=== PATIENT | male | born 1970 | race Caucasian/White ===

== ENCOUNTER 2019-02-05 07:36 | Outpatient (RCR) | payer OTHER, SELFPAY ==
[2019-01-25 08:01] VITALS: BMI 27.5
--- NOTE | 2019-02-05 08:40 | HP.PTEVAL_ITS ---
Patient's Visit Information CAYLA DIAZ is a 49 year old M referred to Physical Therapy by Elizabeth Baca DO with a diagnosis of L LE weakness. Date of Evaluation: 02/05/19 Physical Therapist: Rich Ambrose, DPT, OCS, CSCS - Visit Plan Frequency: Every Other Week Duration: 2 Months Plan: Every other week x 2 months to progress L ankle strength, Leg stretches and LB ROM. Next session give quad stretch, LE rot in NWB and DKC and progress calf strength to blue band or heel raises b. Then yoga flow and progressions. - Subjective Findings: 2010 surgery discectomy L45. Had injections prior and at some point in that process got numbness L foot and calf atrophy since that time. Has sciatic pain slightly in R and had LBP a couple weeks ago but gone. Dr. baca is sending to neurologist due to L leg numbness and calf. pt worrying about overcompensating with R leg. No pain this week except R buttock sciatic for a little time after getting up and then gone within an hour. Works 3rd shift at [employer] on feet all night in [place]. Walks 5 miles per night. Works 7 days per week. Sleep is OK most of the time 6 hours. Not much free time, used to golf but no time. Basics at home are fine. - Pain R sciatica Pain Intensity (Out of 10): 0 Pain Intensity Range: 0, 2 - Objective L calf atrophied and not using in his gait pattern with premature L toe off due to weakness in calf and overusing hip flexor muscles. But I with gait. Transfers I. L/S aROM ext max limitation, flexion max limitations, SB mod limitations. HS max tight at -50 90/90 test. quads mod tight. ITB mod tight. Hip flexor mod tight with 5 degrees hip extension. Corrdiantion L reciprocal heel tap slight deficit vs R. reflexes 2/3 B patella and 1/3 L patella and 2/3 R patella. Sensation diminished in L foot and lateral calf. Weakness present L calf at 3/5, inv/ev at 4- adn DF 4+, R is 4+ throughout. Knee and hip strength is 4+/5 B without myotomal abnormalities. - Goals Goal 1:: patient able to heel raise on L calf Goal Time Frame: 6-8 Weeks Goal 2:: Patient I in appropriate home stretches, back ROM and L ankle strength to minimize future problems. Goal 3:: Patient feel condition 50% improving and no pain in sciatic area on R Goal Time Frame: 4-6 Weeks - Rehabilitation Potential Physical Therapy Diagnosis: L LE weakness form previous back problems Rehabilitation Potential: Fair - Anticipated Interventions Patient/Client Instruction: Educate patient on: Condition, Plan of Care For the Purpose of:: To increase ROM, To improve muscle performance and motor function, To improve ability of physical actions for home/community/work/leisure Therapeutic Exercise to Include: Strength training, Flexibilty training, Passive ROM, Active ROM For the Purpose of:: To decrease pain, To improve muscle performance and motor function, To improve ability of physical actions for home/community/work/leisure Thank you for the opportunity to evaluate your patient. For Medicare and Medicare HMO plans, please review the plan of care and approve it. It will need to be FAXED BACK to us at [phone] for Medicare purposes. For Medicare only, by signing this I certify the plan of care. Please let me know if there are questions or concerns regarding this plan of care. Physician Signature: Date:
--- NOTE | 2019-03-25 15:32 | HP.PT.NRP ---
HP - Discharge Summary (1) - Patient Information CAYLA DIAZ was seen in my office for initial evaluation on 02/05/19. The following Plan of Care was established for this patient: Initial Frequency: Every Other Week Initial Duration: 2 Months - Anticipated Interventions Patient/Client Instruction: Educate patient on: Condition, Plan of Care For the Purpose of:: To increase ROM, To improve muscle performance and motor function, To improve ability of physical actions for home/community/work/leisure Therapeutic Exercise to Include: Strength training, Flexibilty training, Passive ROM, Active ROM For the Purpose of:: To decrease pain, To improve muscle performance and motor function, To improve ability of physical actions for home/community/work/leisure This patient was last seen in our office 02/05/19. Pertinent comments regarding their Physical therapy will appear below: Pt seen for evaluation adn establish POC. He neglected to attend any further visits. At this point, it has been over 6 weeks adn I will discontinue due to nonattendance. At this point I will be discontinuing this patient from physical therapy. I would be happy to see this patient again in the future if found appropriate by the physician. Thank you! Rich Ambrose, DPT, OCS, CSCS
== END 2019-02-05 19:00 | disposition home or self-care (01) ==
LOC: PT 07:36
PROVIDERS: Family Provider Internal Medicine; PCP Internal Medicine; Referring Provider Internal Medicine; Visit Provider Internal Medicine
DX: R29.898 Other symptoms and signs involving the musculoskeletal system (principal)
CPT/HCPCS: 97110; 97162

== ENCOUNTER → 2019-05-12 08:14 | Outpatient (CLI) | payer OTHER, SELFPAY ==
[2019-01-25 08:01] VITALS: BMI 27.5
--- NOTE | 2019-05-12 08:36 | RAD_ITS ---
STUDY: X-RAY - LUMBOSACRAL SPINE REASON FOR EXAM: Male, 49 years old. TECHNIQUE: 7 view(s) of the lumbosacral spine were obtained. COMPARISON: None FINDINGS: The vertebral bodies are of normal height and alignment. The intervertebral discs are maintained except for mild narrowing at the level of L4-5 and L5-S1. There is no evidence of spondylolysis or spondylolisthesis. The spinous and transverse processes as well as the pedicles are intact. The flexion and extension views are unremarkable. RAD/L/S Spine Comp/w Bending Views IMPRESSION: Mild narrowing at the L4-5 and L5-S1 with mild apophyseal arthropathy. The study is otherwise negative. Electronically Signed: Gurjit Mark, at 9:44 EST Tel , Service support ,
[2019-05-12 09:36] LABS: Erythrocyte Sedimentation Rate 4 mm/hr (0-15)
[2019-05-12 09:48] LABS: Hemoglobin A1c 5.5 % (4.2-6.3)
[2019-05-12 10:13] LABS: Rheumatoid Factor < 10.0 IU/mL (<15)
[2019-05-12 11:23] LABS: HIV - WCH Non-Reactive (Nonreactive); Hepatitis C Antibody Non-Reactive (Nonreactive); Vitamin B12 462 pg/mL (211-911)
[2019-05-14 14:08] LABS: RNP Ab 0.3 AI (0.0-0.9); Smith Ab <0.2 AI (0.0-0.9)
[2019-05-15 13:19] LABS: ANTINUCLEAR ANTIBODIES DIRECT Negative (Negative)
[2019-05-17 20:07] LABS: PROEL- A/G Ratio 1.4 (0.7-1.7); PROEL- Albumin 3.9 g/dL (2.9-4.4); PROEL- Alpha-1 Globulin 0.2 g/dL (0.0-0.4); PROEL- Alpha-2 Globulin 0.6 g/dL (0.4-1.0); PROEL- Beta Globulin 0.9 g/dL (0.7-1.3); PROEL- Globulin, Total 2.7 g/dL (2.2-3.9); PROEL- TOTAL PROTEIN 6.6 g/dL (6.0-8.5)
[2019-05-17 21:20] LABS: ARSENIC (TOTAL), URINE 11 ug/L (0-50); Creatinine, Urine 1.33 g/L (0.30-3.00); Mercury, Urine 4 ug/L (0-19); Mercury:Creatinine Urine 3 ug/g creat (0-5)
== END ==
PROVIDERS: Family Provider Internal Medicine; PCP Internal Medicine; Referring Provider Psychiatry & Neurology Neurology; Visit Provider Psychiatry & Neurology Neurology
DX: M54.16 Radiculopathy, lumbar region (principal); G57.02 Lesion of sciatic nerve, left lower limb; G62.9 Polyneuropathy, unspecified; R53.83 Other fatigue; R73.9 Hyperglycemia, unspecified
CPT/HCPCS: 72114; 82175; 82570; 82607; 82746; 83036; 83655; 83825; 84165; 84443; 85652; 86038; 86235; 86431; 86703; 86803

== ENCOUNTER 2023-01-29 07:13 | Emergency (ER) | payer OTHER, SELFPAY ==
[2023-01-29 07:14] VITALS: BP 130/89; PULSE 97; RESP 14; TEMP 36.6; O2SAT 98; BMI 26.5
--- NOTE | 2023-01-29 07:17 | EDS_ITS ---
HPI History of Present Illness Chief Complaint: Abd Pain [facility] Medical History (Updated 01/29/23 @ 08:[address] Curtis Walker, ) Abnormal EKG Abnormal PFTs (pulmonary function tests) Back pain Benign essential hypertension Bradycardia Celiac disease COPD (chronic obstructive pulmonary disease) Dyspnea on exertion Elevated glucose HTN (hypertension) Impaired fasting glucose Leukocytosis Limb weakness Nicotine dependence in remission Persistent cough Schamberg disease Vitamin B12 deficiency Vitamin D insufficiency Home Medications amlodipine 5 mg tablet (Norvasc) 5 mg PO QDAY 08/07/17 [History Last Taken Unknown] hydrochlorothiazide 25 mg tablet 25 mg PO QAM 08/07/17 [History Last Taken Unknown] nebivolol 10 mg tablet (Bystolic) 10 mg PO QDAY 08/07/17 [History Last Taken Unknown] albuterol sulfate 90 mcg/actuation aerosol inhaler (ProAir HFA) 2 puff inhalation Q4H PRN shortness of breath or wheezing #1 device 02/03/20 [Rx Last Taken Unknown] doxepin 10 mg capsule 10 mg PO QHS PRN 02/03/20 [History Last Taken Unknown] ciprofloxacin HCl 500 mg tablet 500 mg PO BID #14 TABLETS 01/29/23 [Rx Last Taken Unknown] metronidazole 500 mg tablet 500 mg PO BID #14 tabs 01/29/23 [Rx Last Taken Unknown] ondansetron 4 mg disintegrating tablet 4 mg PO Q8H PRN nausea and vomiting 7 days #21 tabs 01/29/23 [Rx Last Taken Unknown] Allergy/AdvReac Type Severity Reaction Status Date / Time No Known Allergies Allergy Verified 01/29/23 07:14 Family History Son Asthma Mother Asthma Surgical History History of back surgery History of vasectomy Social History (Updated 02/03/20 @ 07:[address] Yariel Lamb, ) Smoking Status: Current every day smoker tobacco type: cigarettes how long ago did patient quit smokin, 2pk/day second hand exposure: Yes alcohol intake: never substance use type: does not use caffeine: Yes what type of physical activity do you participate in: none EXAM Physical Exam Const Vital Signs: 01/29/23 07:14 Temperature 97.8 F Temperature Source Temporal Pulse Rate 97 Respiratory Rate 14 Blood Pressure 130/89 H Blood Pressure Mean 102 Pulse Ox 98 Oxygen Delivery Method [place] [facility] [place] Medical decision making narrative: HISTORY OF PRESENT ILLNESS: 53-year-old male here with abdominal pain nausea, diarrhea. Patient states his was sick recently. He notes lower abdominal discomfort. He also notes some blood in his diarrhea. Denies frequency urgency or discomfort with urination. States he has had no abdominal surgeries. No vomiting but noted nausea this morning. No chest pain or shortness of breath. Last bowel was just prior to arrival. REVIEW OF SYSTEMS: Pertinent positives: Abdominal pain nausea, diarrhea Pertinent negatives: Vomiting PHYSICAL EXAM: Nursing triage notes reviewed, Vital signs reviewed Constitutional: please see [facility] HENT: MMM Eyes: Pupils equal round and reactive to light, Extraocular muscles intact Neck: No stridor, no JVD, full neck ROM Lungs: Clear to auscultation, No wheezing or rales. No increased work of breathing, no conversational dyspnea, no accessory muscle use, no nasal flaring. No respiratory distress noted Heart: Regular rate and rhythm, No murmurs, No rubs and No gallops, 2+ distal pulses (radial, femoral, posterior tibial) in all extremities Abdomen: Soft, there is no tenderness, rigidity, rebound or guarding, no obvious peritoneal signs, no palpable pulsatile abdominal masses, no auscultated abdominal bruit : No CVAT Extremities: No edema Neuro: No focal neurological deficits, cranial nerves II through XII intact, 5/5 strength in all extremities. Intact sensation to light touch in all extremities, 2+ reflexes bilateral patella tendons. Normal gait. No ataxia. Skin: No rash or lesions noted MEDICAL DECISION MAKING: Chief Complaint: Abdominal pain, nausea vomiting External records reviewed: No recent advanced imaging of the abdomen/pelvis Factors affecting care: History of COPD, Social determinants of health: current everyday smoker History obtained from others: The patient's Consults: none ALL IMAGES (IF OBTAINED) HAVE BEEN PERSONALLY REVIEWED AND INTERPRETED BY MYSELF. [facility] Narrative: Patient is hemodynamically stable, afebrile, nontoxic-appearing. Abdominal exam was benign but did have some mild tenderness in lower abdomen. I considered the following differential diagnosis: Infectious diarrhea, viral diarrhea, dehydration, electrolyte abnormality, diverticulitis, perforated ulcer I obtained a broad lab and imaging work-up to further elucidate the etiology the patient complaints. CT scan abdomen pelvis showed evidence of pancolitis, bl adder wall thickening. Labs are concerning for systemic inflammation, hypokalemia JOSHUA. There is no signs of endorgan hypoperfusion with a normal anion gap. Patient was given 2 L of fluid given oral potassium. BMP was repeated with improvement in creatinine as well as improvement in potassium. I had a shared decision-making discussion with the patient in regards to admission for further fluid hydration, repeat lab work and evaluation however patient refused admission at this time stating he like to try to take oral antibiotics to treat his UTI and pancolitis and to return if symptoms change or worsen. He was discharged with Zofran, ciprofloxacin and metronidazole for empiric colitis therapy. Ciprofloxacin was chosen to also cover UTI. Urine culture and stool cultures were sent. He was encouraged to follow-up with his primary care physician for further outpatient evaluation. The patient and/or family, caregivers express understanding. The patient and/or family, caregivers agrees with the plan. Shared decision making: I will have a discussion with the patient and or visitors regarding risk/benefits of further testing or admission. They will be made aware of of the risk/benefits inherent in this decision they will be given the opportunity to voice understanding. Total critical care time today provided was at least 0 minutes. This excludes separately billable procedures. Critical care time (if documented) is secondary to the patient having high probability of clinically significant/life threatening deterioration in the patient's condition which required my urgent intervention. Discharge Plan Triage Chief Complaint: Abd Pain ED Provider: Curtis Walker Dx/Rx/DC Orders Clinical Impression: Acute kidney injury, Acute dehydration, Diarrhea, Leukocytosis, Acute hypokalemia Instructions: Urinary Tract Infections in Men, ED Understanding Colitis Prescriptions: New metronidazole 500 mg tablet 500 mg PO BID Qty: 14 0RF ciprofloxacin HCl 500 mg tablet 500 mg PO BID Qty: 14 0RF ondansetron 4 mg tablet,disintegrating 4 mg PO Q8H PRN (Reason: nausea and vomiting) 7 Days Qty: 21 0RF No Action amlodipine [Norvasc] 5 mg tablet 5 mg PO QDAY hydrochlorothiazide 25 mg tablet 25 mg PO QAM nebivolol [Bystolic] 10 mg tablet 10 mg PO QDAY doxepin 10 mg capsule 10 mg PO QHS PRN albuterol sulfate [ProAir HFA] 90 mcg/actuation HFA aerosol inhaler 2 puff INHALATION Q4H PRN (Reason: shortness of breath or wheezing) Qty: 1 3RF Primary Care Provider: Elizabeth Heller Referrals: Elizabeth Heller DO [Primary Care Provider] - Activity Restrictions/Additional Instructions: Thank you for trusting us with your care today! Please take Tylenol (2 pills, 650 mg), ibuprofen (2 pills, 400 mg) every 6 hours as needed for pain and fever control. Please take Zofran as needed for nausea. Please take antibiotics as prescribed. Please return to the emergency department if your symptoms change or worsen. Specifically if you develop worsening pain, develop fever, develop vomiting, if you lose consciousness. Please follow with your primary care physician for further outpatient evaluation and management. Please inquire about stool and urine culture results and any need to adjust antimicrobial therapy. Disposition Disposition: Home, Self Care
--- NOTE | 2023-01-29 07:39 | CT_ITS ---
STUDY: CT ABDOMEN AND PELVIS WITH CONTRAST REASON FOR EXAM: Male, 53 years old. Lower abdominal pain. Nausea and vomiting. Diarrhea. RADIATION DOSAGE (If Supplied By Facility): CTDIvol = ( 14.69 ) mGy, DLP = ( 1079.42 ) mGycm TECHNIQUE: Transaxial images were obtained from the dome of the diaphragm to the symphysis pubis without oral contrast. IV 100mL Isovue-300 was administered. Sagittal and coronal images were reconstructed. Individualized dose optimization techniques were used for this CT. COMPARISON: None. FINDINGS: The visualized lung bases are unremarkable. The visualized portions of the heart are within normal limits. Normal liver. Normal gallbladder and extrahepatic biliary system. Normal spleen. Normal pancreas. Normal bilateral adrenal glands. Normal right kidney. Normal left kidney. Normal visualized stomach. Normal small intestine. Inflammatory changes seen in the colon worse in the right hemicolon. Colitis should be ruled out. Lymph nodes are seen in the mesenteric fat in the right lower quadrant suggestive of mesenteric adenitis. The appendix is visualized and appears normal. There is scattered atherosclerotic calcification of the abdominal aorta, without a demonstrated aneurysm. Normal inferior vena cava. Normal retroperitoneum. Bladder wall thickening although the bladder is not completely distended at this time. Normal abdominal wall. Normal osseous structures. CT/Abdomen/Pelvis W IV Cont ONLY IMPRESSION: Findings included with the pancolitis worse in the right hemicolon. Bladder wall thickening although the bladder is not completely distended at this time. Electronically Signed: Pacheco Rooney MD at 8:42 EDT ,
[2023-01-29 07:46] LABS: Absolute Lymphocyte Count 1.58 X10^3/uL (0.83-4.51); Absolute Neutrophil Count 9.3 X10^3/uL (2.0-7.7); Basophil% 0.8 % (0-1); Eosinophil# 0.09 X10^3/uL; Eosinophils% 0.7 % (0-5); Hematocrit 54.6 % (40-54); Lymphocyte # 1.58 X10^3/ul (0.83-4.51); Lymphocyte % 12.4 % (19-41); Mean Corp Hgb Conc 34.8 g/dL (32-36); Mean Corpuscular Hgb 32.3 pg (27.0-32.0); Mean Corpuscular Volume 92.9 fL (80-94); Mean Platelet Vol. 11.2 fl (6.2-12.0); Monocyte% 12.6 % (0-10); NRBC Flagged by Analyzer 0 % (0-5); Neutrophil # 9.33 X10^3/uL (2.7-7.7); Neutrophil % 73.2 % (47-70); POSITIVE DIFFERENTIAL YES; Platelet Count 254 K/mm3 (150-450); RBC Distribution Width CV 11.7 % (11.6-14.6); RBC Distribution Width SD 40.4 fl (35.1-43.9); Red Blood Count 5.88 M/mm3 (4.6-6.2); White Blood Count 12.7 K/mm3 (4.4-11.0)
[2023-01-29 07:53] LABS: Differential Indicated SCAN CRITERIA MET
[2023-01-29 07:54] LABS: Squamous Epithelial Cells - UA 0 SEEN /hpf (0-5)
[2023-01-29] MEDS: Ondansetron 4 MG/2 ML Vial IV (07:54)
[2023-01-29] MEDS: Morphine 4 MG/ML Syringe IV (07:54)
[2023-01-29] MEDS: 0.9% Normal Saline 1,000 ML 1000 ML IV (07:54)
[2023-01-29 08:03] LABS: Color, Urine Yellow (Yellow); Glucose, Dipstick Normal (Normal); Ketone-Dipstick 15 mg/dl (Negative); Leukocyte Esterase-Dipstick 25 /ul (Negative); Nitrite-Dipstick Positive (Negative); Occult Blood-Urine 25 /ul (Negative); Protein-Dipstick 100 mg/dl (Negative); Urine Clarity Sl. Cloudy (Clear); Urine Urobilinogen 4 mg/dl (Normal)
[2023-01-29 08:03] LABS: ALB/GLOB Ratio 0.9 RATIO (0.9-2.4); AST(SGOT) 14 U/L (15-37); Alanine Aminotransfer ALT/SGPT 25 U/L (16-61); Albumin, Serum 3.5 g/dL (3.2-5.0); Alkaline Phosphatase 68 U/L (45-117); Anion Gap 6 (5-15); BUN 23 mg/dL (7-18); Calcium,Total 9.1 mg/dL (8.5-10.1); Chloride 105 mmol/L (98-107); Creatinine, Serum 1.64 mg/dL (0.70-1.30); EST Glomerular Filtration Rate 47 mL/min (>60); Est Glom Filt Rate - Afr Amer 57 mL/min (>60); Estimated Creatinine Clearance 68.89 ml/min; Globulin 4.1 g/dL (2.2-4.2); Glucose 148 mg/dL (74-106); Lipase 37 U/L (13-75); Potassium 2.8 mmol/L (3.5-5.1); Protein, Total 7.6 g/dL (6.4-8.2); Sodium Level 137 mmol/L (136-145)
[2023-01-29 08:04] LABS: Urine Bilirubin Dipstick 1 mg/dL (Negative)
[2023-01-29 08:06] LABS: Bacteria 2+ /hpf (None Seen); Mucous, Urine 1+ /hpf (<or=2+); Red Blood Cells-Urine 0-5 SEEN /hpf (0-5); White Blood Cells 0-5 SEEN /hpf (0-5)
[2023-01-29 08:07] LABS: Coarse Granular Cast 5-10 SEEN /lpf (0-5 /lpf)
[2023-01-29 08:19] LABS: Differential Comment SCANNED
[2023-01-29] MEDS: Potassium Chloride Oral Tablet 20 MEQ 60 MEQ PO (08:36)
[2023-01-29] MEDS: 0.9% Normal Saline 1,000 ML 999 ML IV (08:36)
[2023-01-29 09:13] VITALS: RESP 18
[2023-01-29] MEDS: Ciprofloxacin 500 MG Tablet PO (09:18)
[2023-01-29] MEDS: metroNIDAZOLE 500 MG Tablet PO (09:18)
[2023-01-29 10:00] LABS: Anion Gap 5 (5-15); BUN 20 mg/dL (7-18); BUN/Creat Ratio 14.8 RATIO (10-20); Calcium,Total 7.9 mg/dL (8.5-10.1); Chloride 109 mmol/L (98-107); Creatinine, Serum 1.35 mg/dL (0.70-1.30); EST Glomerular Filtration Rate 59 mL/min (>60); Est Glom Filt Rate - Afr Amer 72 mL/min (>60); Estimated Creatinine Clearance 83.69 ml/min; Glucose 115 mg/dL (74-106); Potassium 3.4 mmol/L (3.5-5.1); Sodium Level 140 mmol/L (136-145)
[2023-01-29 11:00] VITALS: RESP 20
[2023-01-30 13:03] LABS: Pathologist Review Reviewed
== END 2023-01-29 11:04 | disposition home or self-care (01) ==
PROVIDERS: Emergency Provider Emergency Medicine; PCP Internal Medicine; Visit Provider Emergency Medicine
DX: N17.9 Acute kidney failure, unspecified (principal); J44.9 Chronic obstructive pulmonary disease, unspecified; K51.00 Ulcerative (chronic) pancolitis without complications; E86.0 Dehydration; D72.829 Elevated white blood cell count, unspecified; I10 Essential (primary) hypertension; R19.7 Diarrhea, unspecified; E87.6 Hypokalemia; Z79.899 Other long term (current) drug therapy; Z98.52 Vasectomy status; F17.210 Nicotine dependence, cigarettes, uncomplicated
CPT/HCPCS: 74177; 80048; 80053; 81001; 83690; 85025; 87077; 87086; 87088; 87186; 87493; 87506; 96361; 96374; 96375; 99284; J7030; Q9967; A4216; J2405

== ENCOUNTER → 2025-02-15 | Outpatient (CLI) | payer OTHER, SELFPAY ==
[2025-02-15 09:11] LABS: Mucous, Urine 0 SEEN /hpf (<or=2+); Red Blood Cells-Urine 0 SEEN /hpf (0-5); Squamous Epithelial Cells - UA 0 SEEN /hpf (0-5)
[2025-02-15 10:33] LABS: Hematocrit 45.0 % (40-54); Hemoglobin 15.3 g/dL (13.0-16.5); Immature Granulocytes Count 0.060 X10^3/uL (0.0-0.0); Mean Corp Hgb Conc 34.0 g/dL (32-36); Mean Corpuscular Volume 94.9 fL (80-94); Mean Platelet Vol. 11.0 fl (6.2-12.0); NRBC Flagged by Analyzer 0 % (0-5); Platelet Count 215 K/mm3 (150-450); RBC Distribution Width CV 11.9 % (11.6-14.6); RBC Distribution Width SD 41.9 fl (35.1-43.9); Red Blood Count 4.74 M/mm3 (4.6-6.2); White Blood Count 11.9 K/mm3 (4.4-11.0)
[2025-02-15 10:54] LABS: Color, Urine Straw (Yellow); Glucose, Dipstick Normal (Normal); Ketone-Dipstick Negative (Negative); Leukocyte Esterase-Dipstick Negative /ul (Negative); Nitrite-Dipstick Negative (Negative); Occult Blood-Urine Negative /ul (Negative); Protein-Dipstick Negative (Negative); Specific Gravity, Urine 1.010 (1.002-1.030); Urine Bilirubin Dipstick Negative (Negative)
[2025-02-15 11:41] LABS: Creatinine, Urine (random) 42.90 mg/dL (39.00-259.00); Microalbumin,Random Urine < 12.0 mg/L (<20 mg/L)
[2025-02-15 11:48] LABS: AST(SGOT) 14 U/L (<=37); Alanine Aminotransfer ALT/SGPT 18 U/L (<=46); Albumin, Serum 4.1 g/dL (3.5-5.0); Alkaline Phosphatase 54 U/L (40-129); Anion Gap 9 (5-15); BUN 13 mg/dL (4-19); BUN/Creat Ratio 14.8 RATIO (10-20); Calcium,Total 9.0 mg/dL (7.6-11.0); Carbon Dioxide 26.7 mmol/L (21.0-32.0); Chloride 105 mmol/L (98-108); Cholesterol 214 mg/dL (<=200); Globulin 2.3 g/dL (2.2-4.2); Glucose 121 mg/dL (70-99); Low Density Lipoprotein Calc. 134 mg/dL; PSA,Total - Annual Screen 0.45 ng/mL (0.02-4.00); Potassium 3.9 mmol/L (3.3-5.1); Triglycerides 127 mg/dL; Very Low Density Lipoprotein 25 mg/dL (5-40); Vitamin B12 519 pg/mL (180-914); Vitamin D,25 Hydroxy 30.3 ng/mL (30-100); cholesterol:hdl ratio screen 3.92
== END | disposition home or self-care (01) ==
LOC: MTLAB 09:04
PROVIDERS: PCP Internal Medicine; Referring Provider Internal Medicine; Visit Provider Internal Medicine
DX: I10 Essential (primary) hypertension (principal); R73.01 Impaired fasting glucose; E53.8 Deficiency of other specified B group vitamins; E55.9 Vitamin D deficiency, unspecified; R00.0 Tachycardia, unspecified; Z12.5 Encounter for screening for malignant neoplasm of prostate
CPT/HCPCS: 36415; 80053; 80061; 81001; 82043; 82306; 82570; 82607; 83036; 84153; 84443; 85025; G0103